=== PATIENT | male | born 1975 | race Caucasian/White ===

== ENCOUNTER 2018-02-14 08:00 | Outpatient (RCR) | payer MEDICARE, MEDICAID, SELFPAY ==
--- NOTE | 2018-02-14 08:00 | DT_ITS ---
This patient was seen during an EMR downtime February 12, 2018 - February 19, 2018. This patient may have a combination of paper and electronic documentation or all paper documentation. All documentation is viewable within the e-chart portion of [facility] for each patient visit.
== END 2018-03-10 23:59 ==
LOC: NS 08:00
DX: E46 Unspecified protein-calorie malnutrition (principal); Z71.3 Dietary counseling and surveillance
CPT/HCPCS: 97802

== ENCOUNTER 2018-03-15 10:11 | Outpatient (RCR) | payer MEDICARE, MEDICAID, SELFPAY | END 2018-04-10 23:59 | LOC: NS 10:11 | DX: E46 Unspecified protein-calorie malnutrition (principal); Z71.3 Dietary counseling and surveillance | CPT/HCPCS: 97803 ==

== ENCOUNTER 2018-04-23 08:20 | Outpatient (RCR) | payer MEDICARE, MEDICAID, SELFPAY | END 2018-05-11 23:59 | LOC: NS 08:20 | DX: E46 Unspecified protein-calorie malnutrition (principal); Z71.3 Dietary counseling and surveillance | CPT/HCPCS: 97803 ==

== ENCOUNTER 2018-06-04 10:56 | Outpatient (RCR) | payer MEDICARE, MEDICAID, SELFPAY | END 2018-06-10 23:59 | LOC: NS 10:56 | DX: E46 Unspecified protein-calorie malnutrition (principal); Z71.3 Dietary counseling and surveillance ==

== ENCOUNTER 2018-07-02 10:30 | Outpatient (RCR) | payer MEDICARE, MEDICAID, SELFPAY | END 2018-07-11 23:59 | LOC: NS 10:30 | DX: E46 Unspecified protein-calorie malnutrition (principal); Z71.3 Dietary counseling and surveillance | CPT/HCPCS: 97803 ==

== ENCOUNTER 2018-08-28 15:26 | Outpatient (RCR) | payer MEDICARE, MEDICAID, SELFPAY | END 2018-09-10 23:59 | LOC: NS 15:26 | DX: E46 Unspecified protein-calorie malnutrition (principal); Z71.3 Dietary counseling and surveillance | CPT/HCPCS: 97803 ==

== ENCOUNTER 2018-10-29 12:13 | Outpatient (RCR) | payer MEDICARE, MEDICAID, SELFPAY | END 2018-11-08 23:59 | LOC: NS 12:13 | DX: E46 Unspecified protein-calorie malnutrition (principal); Z71.3 Dietary counseling and surveillance ==

== ENCOUNTER 2018-11-29 14:50 | Outpatient (RCR) | payer MEDICARE, MEDICAID, SELFPAY | END 2018-12-09 23:59 | LOC: NS 14:50 | DX: E46 Unspecified protein-calorie malnutrition (principal); Z71.3 Dietary counseling and surveillance | CPT/HCPCS: 97803 ==